=== PATIENT | male | born 1985 | race Hispanic/Latino ===

== ENCOUNTER 2024-08-30 16:09 | Emergency (ER) | payer SELFPAY ==
[~2024-08-30] VITALS: Ht 162.6 cm; Wt 96.2 kg
[2024-08-30 16:20] VITALS: RESP 18; TEMP 98.5
[2024-08-30] MEDS ORDERED: FLUORESCEIN SOD(OPTH) 1 MG STRP ONE (16:23)
[2024-08-30] MEDS ORDERED: TETRACAINE HCL 0.5% OPTH SOLN 4 ML BTL ONE (16:23)
[2024-08-30] MEDS: FLUORESCEIN SOD(OPTH) 1 MG STRP OP ONE (16:44)
[2024-08-30] MEDS: TETRACAINE HCL 0.5% OPTH SOLN 4 ML BTL OP ONE (16:44)
[2024-08-30] MEDS ORDERED: OFLOXACIN5 ML OP (16:46)
[2024-08-30 16:53] VITALS: PULSE 88; O2SAT 98
== END 2024-08-30 16:53 | disposition home or self-care (01) ==
LOC: ER 16:20
DX: S05.01XA Injury of conjunctiva and corneal abrasion without foreign body, right eye, initial encounter (principal); Y04.0XXA Assault by unarmed brawl or fight, initial encounter; Y92.89 Other specified places as the place of occurrence of the external cause
CPT/HCPCS: 99283